=== PATIENT | male | born 1945 | race Caucasian/White ===

== ENCOUNTER → 2017-04-24 | Outpatient (CLI) | payer OTHER ==
[~2017-04-24] MED LIST: APIX5TAB2 PO; CLCX200C PO; HCT25T PO; KRILL OIL PO; MELO-195 PO; NEBI20TA2 PO; POTA10CA43 PO; POTA10TA36 PO; TELM80TA3 PO
--- NOTE | 2017-04-24 14:08 | Diagnostic Imaging Report ---
EXAMINATION: Scrotal ultrasound. INDICATION: Left testicular enlargement. FINDINGS: The right testicle is 4.9 x 2.9 x 2.7 cm. The left testicle is 4.5 x 2.9 x 2.4 cm. Both testicles demonstrate internal vascularity with arterial and venous waveforms demonstrated. There is very large hydrocele on the left side and [id number] hydrocele on the right side. Both demonstrate internal debris. No extratesticular solid mass is identified. IMPRESSION: Bilateral hydrocele, very large on the left and [id number] on the right side. Dictated by: Dictated on workstation # [id number]
== END ==
LOC: RAD 12:58
PROVIDERS: ATTEND Family Medicine
DX: N43.3 Hydrocele, unspecified (principal)
CPT/HCPCS: 76870

== ENCOUNTER 2017-05-02 05:51 | Outpatient (CLI) | payer OTHER ==
[~2017-05-02] VITALS: Ht 182.9 cm; Wt 102.1 kg
[2017-05-02] MEDS ORDERED: METF500T4 PO (09:15)
[2017-05-02] MEDS ORDERED: POTA10TA10 PO (09:15)
[2017-05-02] MEDS ORDERED: METO200T32 PO (09:15)
[2017-05-02] MEDS ORDERED: IRBE300T18 PO (09:15)
== END 2017-05-02 09:23 ==
LOC: PREOP 05:51
PROVIDERS: ATTEND Surgery
DX: Z01.818 Encounter for other preprocedural examination (principal); N43.3 Hydrocele, unspecified

== ENCOUNTER 2017-05-05 08:53 | Day surgery (SDC) | payer OTHER ==
[~2017-05-05] VITALS: Ht 182.9 cm; Wt 102.1 kg
[~2017-05-05 08:53] MED LIST changes: +IRBE300T18 PO; +METF500T4 PO; +METO200T32 PO; +POTA10TA10 PO
[2017-05-05] MEDS ORDERED: fentaNYL INJECTION 100 MCG/2 ML AMP ONE (09:17)
[2017-05-05] MEDS ORDERED: SEVOFLURANE (ULTANE) 15 ML INHAL SOLN ONE (09:17)
[2017-05-05] MEDS ORDERED: proPOfol 200 MG/20 ML (DIPRIVAN) VIAL IV ONE (09:17)
[2017-05-05] MEDS ORDERED: LIDOCAINE PF 2% 5 ML (XYLOCAINE) VIAL ONE (09:17)
[2017-05-05] MEDS ORDERED: MIDAZOLAM 2 MG/2 ML (VERSED) VIAL ONE (09:17)
[2017-05-05] MEDS ORDERED: ONDANSETRON 4 MG/2 ML (SDV) Z0FRAN ONE (09:17)
[2017-05-05] MEDS ORDERED: LACTATED RINGERS 1,000 ML IV PRN (09:18)
[2017-05-05] MEDS ORDERED: ceFAZolin 2 GM/NS 50 ML IV ONE (09:30)
[2017-05-05 09:54] VITALS: BP 182/98
--- NOTE | 2017-05-05 10:34 | Progress Note-Pre Operative ---
Pre-Operative Progress Note H&P Reviewed The H&P was reviewed, patient examined and no changes noted. Date Seen by Provider: May 05, 2017 Time Seen by Provider: 10:34 Date H&P Reviewed: May 05, 2017 Time H&P Reviewed: 10:34 Pre-Operative Diagnosis: Left hydrocele KOFI TUCKER MD May 05, 2017 10:34
[2017-05-05] MEDS ORDERED: BUP/EPI 0.5% 1:200,000 (MARCAINE) 10ML VIAL IJ ONE (11:04)
[2017-05-05] MEDS ORDERED: ATROPINE INJ 0.4 MG/ML SDV ONE ×2 (11:08→11:11)
[2017-05-05] MEDS ORDERED: HYDR-3820 PO (11:48)
--- NOTE | 2017-05-05 11:48 | Operative Report ---
Operative Report Date of Procedure/Surgery May 05, 2017 Surgeon (s) KOFI TUCKER MD Print Developer (s): not applicable Post-Operative Diagnosis same Procedure Performed excision of left tunica vaginalis Description of Procedure Anesthesia Type: General Estimated blood loss (mL): minimal Specimen(s) collected/removed left tunica vaginalis Description of the Procedure Indication for the procedure: This gentleman presented with a large left hydrocele confirmed by formal ultrasound examination. He was offered surgical therapy that would involve excision of the offending tunic vaginalis. Informed consent was obtained after reviewing the operative details and complications postoperative hematoma, wound infection and recurrence of the hydrocele. Description of the procedure: He was placed supine on the operative table and general anesthesia induced. A gram of Ancef was administered intravenously as prophylaxis against The left side of the scrotum was prepared and draped in the usual sterile manner. Pre--empty analgesia was established using 0.5 percent Marcaine with epinephrine. A vertical incision about 6 cm long was made and the dartos muscle incised vertically. Tunica vaginalis was initially brought into the wound and 400 mL of straw-colored fluid evacuated. Due to the redundant nature of the tunica vaginalis, it was excised and the edges where transfixed with 2-0 PDS suture, in a continuous fashion. Dartos muscle was approximated with 2 layers of 3-0 Vicryl and skin using 4-0 Vicryl, in a subcuticular fashion. A scrotal support was then applied. He tolerated the procedure well, was extubated in the operating room and taken to the recovery room in a stable condition. Findings of the Procedure See operative report Allergies and Home Medications Allergies Coded Allergies: No Known Drug Allergies (Unverified , 05/02/17) Home Medications Hydrochlorothiazide 25 Mg Tablet, 25 MG PO DAILY, (Reported) Irbesartan 300 Mg Tablet, 300 MG PO DAILY, (Reported) Metformin HCl 500 Mg Tablet, 500 MG PO DAILY, (Reported) Metoprolol Succinate 200 Mg Tab.er.24h, 200 MG PO DAILY, (Reported) Potassium Chloride 10 Meq Tablet.er, PO DAILY, (Reported) KOFI TUCKER MD May 05, 2017 11:47 am
--- NOTE | 2017-05-05 11:49 | Discharge Inst-Simple/Standard ---
Discharge Inst-Standard Discharge Medications New, Converted or Re-Newed RX: RX on Chart Patient Instructions/Follow Up Plan of Care/Instructions/FU: scrotal support for 2 weeks. Outer bandage to be removed in 48 hours and Steri-Strips to stay. Follow-up in one month. Activity as Tolerated: Yes Discharge Diet: ADA Diet KOFI TUCKER MD May 05, 2017 11:49 am
[2017-05-05] MEDS ORDERED: ONDANSETRON 4 MG/2 ML (SDV) Z0FRAN IVP PRN (12:00)
[2017-05-05] MEDS ORDERED: HYDROmorphone (DILAUDID) 2 MG/ML VIAL IVP PRN (12:00)
[2017-05-05] MEDS ORDERED: morphine INJ 10 MG/ML 1ML (SYR OR VIAL) IVP PRN (12:00)
[2017-05-05 12:50] VITALS: BP 132/79
[2017-05-05 13:20] VITALS: BP 163/80
[2017-05-05 13:50] VITALS: BP 144/84
[2017-05-05 14:05] VITALS: BP 144/84
== END 2017-05-05 14:05 | disposition home or self-care (01) ==
LOC: SDC 08:53
PROVIDERS: ATTEND Surgery
DX: N43.3 Hydrocele, unspecified (principal); I12.9 Hypertensive chronic kidney disease with stage 1 through stage 4 chronic kidney disease, or unspecified chronic kidney disease; N18.9 Chronic kidney disease, unspecified; I48.91 Unspecified atrial fibrillation; Z79.899 Other long term (current) drug therapy
CPT/HCPCS: 87081

== ENCOUNTER → 2017-10-31 | Outpatient (CLI) | payer OTHER ==
[~2017-10-31] MED LIST changes: +ALPR0.254 PO; +ASPI-808 PO; +BUDE10.2 INH; +FLUT9.9S NS; +HYDR-3820 PO; +HYDR25TA4 PO; +METF500T8 PO; -METO200T32 PO; +METO200T48 PO; +[UNRECOGNIZED DRUG - CODE] PO
[2017-10-31 08:45] LABS: BUN/CREATININE RATIO 19; CALCIUM 9.4 MG/DL (8.5-10.1); CARBON DIOXIDE 22 MMOL/L (21-32); CHLORIDE 107 MMOL/L (98-107); CREATININE SERUM 1.02 MG/DL (0.60-1.30); GFR ESTIMATED > 60; GLUCOSE 117 MG/DL (70-105); POTASSIUM 4.2 MMOL/L (3.6-5.0); SODIUM 140 MMOL/L (135-145)
[2017-10-31 09:46] LABS: BILIRUBIN,URINE NEGATIVE (NEGATIVE); CLARITY,URINE CLEAR; COLOR,URINE YELLOW; GLUCOSE, URINE (UA) NEGATIVE (NEGATIVE); KETONES,URINE NEGATIVE (NEGATIVE); LEUKOCYTE ESTERASE ,URINE NEGATIVE (NEGATIVE); NITRITE,URINE NEGATIVE (NEGATIVE); PH,URINE 6 (5-9); PROTEIN,URINE NEGATIVE (NEGATIVE); UROBILINOGEN,URINE NORMAL (NORMAL)
[2017-10-31 09:58] LABS: BACTERIA,URINE NEGATIVE /HPF; SQUAMOUS EPITHELIAL CELL,UR RARE /HPF
--- NOTE | 2017-10-31 10:00 | Diagnostic Imaging Report ---
INDICATION: Hypertension. TECHNIQUE: Multiple Real-time grayscale images were obtained of the kidneys in various projections. FINDINGS: The right kidney measures 11.1 x 4.7 x 4.9 cm. The left kidney is 11.7 x 5.2 x 4.2 cm. Both kidneys demonstrate slight increased renal cortical echogenicity. There is a cyst in the superior aspect of the right kidney measuring up to 2.9 cm. There is a cyst in the inferior right kidney measuring 1.8 cm. There is no hydronephrosis or calculus. There are elevated velocities in the mid right renal artery up to 236 cm/s. The ICA/CCA ratio is 2.8 on the right. The left proximal renal artery is obscured by bowel gas. There is no evidence of renal artery stenosis on the left. IMPRESSION: Increased renal cortical echogenicity bilaterally, compatible with some degree of medical renal disease. There are also two right renal cysts. Findings are suspect for at least a moderate stenosis of the right renal artery. Recommend clinical correlation and, if warranted, followup with CTA. Dictated by: Dictated on workstation # [id number]
== END ==
LOC: RAD 08:14
PROVIDERS: ATTEND Family Medicine
DX: I10 Essential (primary) hypertension (principal); N28.1 Cyst of kidney, acquired; E11.9 Type 2 diabetes mellitus without complications
CPT/HCPCS: 36415; 80048; 81000; 93975

== ENCOUNTER 2020-06-29 09:51 | Outpatient (RCR) | payer OTHER ==
[~2020-06-29 09:51] MED LIST changes: +ACHYD1T PO; +ALPR.25T PO; -ALPR0.254 PO; -HYDR-3820 PO; +IRBE300T17 PO; -IRBE300T18 PO; +METF-397 PO; +METF-865 PO; -METF500T4 PO; -METF500T8 PO
== END 2020-08-31 | disposition home or self-care (01) ==
DX: M54.5 Low back pain (principal); I10 Essential (primary) hypertension